=== PATIENT | male | born 1945 | race Caucasian/White ===

== ENCOUNTER 2025-07-24 10:17 | Emergency (ER) | payer SELFPAY ==
--- NOTE | ~2025-07-24 | CT_ITS ---
EXAMINATION: CT soft tissue neck w con COMPARISON: None HISTORY: masses TECHNIQUE: Axial images were obtained with IV contrast. Sagittal, coronal reconstruction images were obtained from the axial views. Omnipaque 370, [address] scan performed using dose optimization techniques including the following automated exposure control; adjustment of mA and/or kV; use of iterative reconstruction technique. Automatic exposure control was used to reduce radiation dose. Permanent radiation dose record is archived to PACS. FINDINGS: Visualized brain parenchyma and optic globes are unremarkable There is no thickening of the prevertebral space or asymmetry of the oropharynx. There is narrowing of the airway at the level of the vocal cords with asymmetry of the vocal cords noted. The trachea is deviated to the right with markedly enlarged thyroid lobes noted bilaterally with multiple nodules the largest in the left lobe 3 x 3 cm incompletely evaluated There is no lymphadenopathy in the anterior superior mediastinum. No thickening of the visualized esophagus The parapharyngeal spaces are intact. There is no asymmetry of the tonsillar tissue Within the right parotid gland there is a large lesion measuring 2.3 x 2.2 cm. There is a second lesion in the anterior parotid gland measuring 1 x 1 cm with additional subcentimeter parotid lesions noted. The left parotid gland appears unremarkable. The submandibular glands unremarkable There is no jugulodigastric, posterior cervical or supraclavicular lymphadenopathy The lung bases appear unremarkable There are no sclerotic or lytic lesions. There is severe right chronic appearing right maxillary sinus with underlying polyp formation suspected IMPRESSION: 1. Right parotid lesions detailed above concerning for neoplasm. Contrast- enhanced MRI is recommended. 2. Severe goiter with multiple thyroid nodules with benign of the airway and mass effect upon the trachea. Ultrasound is recommended Reviewed, dictated and finalized at location P. L CONTROL WORKER IMPRESSION: 1. Right parotid lesions detailed above concerning for neoplasm. Contrast-enhan taran MRI is recommended. 2. Severe goiter with multiple thyroid nodules with benign of the airway and ma ss effect upon the trachea. Ultrasound is recommended
--- NOTE | ~2025-07-24 | CT_ITS ---
CT HEAD NON-CONTRAST Clinical History: fall Comparison: None Technique: Unenhanced axial images skull base to vertex Coronal, sagittal reformats CT images acquired with automatic exposure control for dose reduction DLP: 605 mGy-cm Findings: Chronic white matter microvascular ischemic changes. Sulci, ventricles: Unremarkable. No intracerebral hemorrhage. No evidence acute territorial infarct. No mass effect, midline shift. Bony calvarium intact. Visualized paranasal sinuses: Right maxillary opacification with periosteal thickening. Mastoid air cells: Clear. Right parotid nodule. IMPRESSION: 1. No acute intracranial findings. 2. Right parotid nodule. Recommend ultrasound. Reviewed, dictated and finalized at location R. APPLICATION DEVELOPER
--- NOTE | ~2025-07-24 | CT_ITS ---
EXAMINATION: CT chest abdomen pelvis w con DATE: 07/24/2025 12:20 [employer] BOAT OPERATOR INDICATION: Left rib fracture. Malignancy. TECHNIQUE: Computed tomography (CT) of the neck, chest, abdomen, and pelvis was performed with 100 cc Omnipaque 350 intravenous contrast. The dose-length product was 509.18 mGy-cm. Automated exposure control and iterative reconstruction technique were employed. COMPARISON: None FINDINGS: CHEST CT: There is enlarged thyroid gland with multiple ill-defined hypovascular masses, consistent with multinodular goiter. Consider correlation with ultrasound. There is mass effect with deviation of the trachea to be right. There is atherosclerosis of the aorta and coronary arteries. Heart size normal. Small hiatal hernia. No significant pleural or pericardial effusion. No endobronchial lesions. There is dependent atelectasis no suspicious pulmonary nodules or masses. No focal airspace consolidation. ABDOMEN/PELVIS CT: There is a 2.9 cm cyst of the left hepatic lobe. The spleen, pancreas, adrenal glands and left kidney are unremarkable. There is right renal cyst. Gallbladder is present. Nonobstructive bowel gas pattern. Prostate gland is enlarged. There is thoracic and lumbar spondylosis. IMPRESSION: 1. Enlarged heterogeneous thyroid gland with small hypovascular masses, most likely multinodular goiter. Consider correlation with ultrasound. 2: No acute abnormality of the chest or abdomen. Reviewed, dictated and finalized at location O. IAL WARFARE BOAT OPERATOR IMPRESSION: 1. Enlarged heterogeneous thyroid gland with small hypovascular masses, most li cj multinodular goiter. Consider correlation with ultrasound. 2: No acute abnormality of the chest or abdomen.
[2025-07-24 10:18] VITALS: BP 115/93; PULSE 100; RESP 20; TEMP 36.4; O2SAT 97
--- NOTE | 2025-07-24 10:26 | ED_ITS ---
HPI - Fall General Chief Complaint: Fall Stated Complaint: fall Time Seen by Provider: 07/24/25 10:26 Source: patient and EMS Mode of arrival: EMS History of Present Illness HPI Narrative: 79 years old white male lives alone, going to the bathroom somehow fell landed on the floor, complaining of left lower ribs pain, denies other injuries. History of lower back surgery years ago. Patient currently on [id number] vitamin D daily otherwise not taking any medications, does not remember when the last time been seen by , lives alone, drink 3 beers in the morning and 3 beers at night to relax his lower back. Came to the ED by ambulance. He denies head injury or loss of consciousness Related Data Home Medications ?Medication ?Instructions ?Recorded ?Confirmed ?Last Taken ?Type cholecalciferol (vitamin D3) 50 50 mcg PO DAILY Unknown History mcg (2,000 unit) capsule (D3-1999) Allergies Allergy/AdvReac Type Severity Reaction Status Date / Time No Known Allergies Allergy Verified 07/24/25 10:43 Review of Systems 2 Review of Systems: All systems reviewed & are unremarkable except as noted in HPI and below Exam 2 Narrative: General appearance: Well-developed, well-nourished, poor hygienic condition Skin: Normal color Head: Normocephalic, nontraumatic Eyes: Clear conjunctiva ENT: Oropharynx normal, ears normal, nose normal Neck: Supple, nontender, non tender masses and the upper neck bilaterally just below the level of the ear and at the lower half of the neck bilaterally Chest and respiratory: Airway patent, no respiratory distress, no accessory muscle use, severe tenderness left chest, mid axillary line, no bruises or swelling or rash Heart: Regular rate/rhythm Abdomen: Soft, nontender, no organomegaly, quiet bowel sounds Vascular: Normal peripheral pulses, normal capillary refill. 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 normal as tested, no gross motor deficit Course Vital Signs Vital signs: Vital Signs Temperature 36.4 C 07/24/25 10:18 Pulse Rate 100 07/24/25 10:18 Respiratory Rate 20 07/24/25 10:18 Blood Pressure 115/93 H 07/24/25 10:18 Pulse Oximetry 97 07/24/25 10:18 Oxygen Delivery Room Air 07/24/25 10:18 Temperature 36.7 C 07/24/25 13:21 Pulse Rate 106 H 07/24/25 13:21 Respiratory Rate 18 07/24/25 13:21 Blood Pressure 145/71 H 07/24/25 13:21 Pulse Oximetry 94 07/24/25 13:21 Oxygen Delivery Room Air 07/24/25 13:21 MDM - Fall MDM Narrative Medical decision making narrative: Patient came to the ED with left chest pain after tripping causing balance and fall at home landed on the floor. He denies other injuries. Vital signs showing blood pressure 115/93 otherwise within normal limit Physical examination showing poor hygienic patient, nontender swelling at the base of the neck bilaterally and at the parotid care and bilaterally more on the right. +severe tenderness left chest mid axillary line without bruises or swelling Differential diagnosis neck mass, parotid gland mass, left rib fracture, intrathoracic or intra-abdominal malignancy. Blood workup to the includes CBC, CMP, TSH, showed glucose 209, TSH of 0.25 indicating possible hyperthyroidism. CT head showed without contrast showed no acute abnormality CT neck with IV contrast showed right parotid lesions, MRI is recommended CT chest abdomen and pelvis with IV contrast showed left 3 fractured ribs, goiter, ultrasound recommended for further evaluation Patient declined hospitalization, rehab or care home placement would like to go home because he smokes and drink. All diagnosis right parotid gland lesion, goiter, left 3 broken ribs Discharged on Ultram, naproxen and Tylenol as needed Follow-up with family physician for further evaluation Differential Diagnosis Differential diagnosis: Likely other (As above) Lab Data Attestation: I reviewed the patient's lab results. 07/24/25 10:42 07/24/25 10:42 Labs: Lab Results 07/24/25 07/24/25 Range/Units 10:42 12:15 WBC 9.5 (4.8-10.8) K/mm3 RBC 4.92 (4.70-6.10) M/mm3 Hgb 15.1 (12.4-15.3) g/dL Hct 43.7 (37.0-46.0) % MCV 88.8 (78.0-102.0) fL MCH 30.7 (27.0-31.0) pg MCHC 34.6 (32-36) g/dL RDW 11.5 L (11.6-14.4) % Plt Count 250 (150-420) K/mm3 MPV 8.4 L (8.7-11.0) fl Immature Gran % (Auto) 0.7 H (0.0-0.0) % Neut % (Auto) 79.7 H (50.0-70.0) % Lymph % (Auto) 10.0 L (18.0-42.0) % [place] % (Auto) 8.9 (2.0-11.0) % Eos % (Auto) 0.4 L (1.0-6.0) % Baso % (Auto) 0.3 (0.0-1.0) % Lymph # (Auto) 0.95 L (1.10-4.50) K/mm3 [place] # (Auto) 0.85 (0.10-0.90) K/mm3 Eos # (Auto) 0.04 (0.02-0.50) K/mm3 Baso # (Auto) 0.03 (0.00-0.10) K/mm3 Abs Immat Gran (auto) 0.07 H (0.00-0.00) K/mm3 Absolute Neuts (auto) 7.57 H (1.70-7.20) K/mm3 Absolute Nucleated RBC 0.00 (0.00-0.00) K/mm3 Nucleated RBC % 0.0 (0-0.0) % PT 11.1 (9.50-12.1) Seconds INR 1.0 APTT 28.1 (23.9-30.70) Sec Sodium 133 L (137-145) mmol/L Potassium 4.4 (3.4-5.0) mmol/L Chloride 95 L (98-107) mmol/L Carbon Dioxide 29 (22-30) mmol/L Anion Gap 9 (4-12) mmol/L BUN 7 L (9-20) mg/dL Creatinine 0.74 (0.7-1.3) mg/dL Estim Creat Clear Calc 74 ml/min Estimated GFR > 60 (59 - ) Glucose 209 H (65-110) mg/dL Calculated Osmolality 280 L (285-295) mOsm/kg Calcium 9.3 (8.4-10.2) mg/dL Total Bilirubin 1.0 (0.2-1.3) mg/dL AST 26 (17-59) U/L ALT 23 (6-50) U/L Alkaline Phosphatase 96 (38-126) U/L Total Creatine Kinase 62 (55-170) U/L Total Protein 7.3 (6.3-8.2) g/dL Albumin 4.5 (3.5-5.1) g/dL TSH 0.252 L (0.465-4.680) uIU/mL Urine Color Light yellow (Yellow) Urine Appearance Clear (Clear) Urine pH 6.5 (5.0-8.0) Ur Specific [place] <= 1.005 L (1.010-1.020) Urine Protein Negative (Negative) Urine Glucose (UA) Trace H (Negative) Urine Ketones 1+ H (Negative) Ur Blood (Man) Trace-intact H (Negative) Urine Nitrate Negative (Negative) Urine Bilirubin Negative (Negative) Urine Urobilinogen 1.0 (0.2-1.0) mg/dL Leukocyte Esterase Rfl Negative (Negative) LUIS MANUEL/UL Ethyl Alcohol < 10 (<10) mg/dL Imaging Data Radiologist's impression: Impressions Head CT 07/24/25 11:50 IMPRESSION: 1. No acute intracranial findings. 2. Right parotid nodule. Recommend ultrasound. Chest/Abdomen/Pelvis CT 07/24/25 12:19 IMPRESSION: 1. Enlarged heterogeneous thyroid gland with small hypovascular masses, most likely multinodular goiter. Consider correlation with ultrasound. 2: No acute abnormality of the chest or abdomen. ADDENDUM: 07/24/25 1251 Addendum: There are acute left fifth, seventh and eighth rib fractures, nondisplaced. No pneumothorax. Soft Tissue Neck CT 07/24/25 12:45 IMPRESSION: 1. Right parotid lesions detailed above concerning for neoplasm. Contrast- enhanced MRI is recommended. 2. Severe goiter with multiple thyroid nodules with benign of the airway and mass effect upon the trachea. Ultrasound is recommended Critical Care Time Critical Care Time Critical Care Time: No Discharge Plan Discharge Clinical Impression: Goiter diffuse, Hepatic cyst, Mass of right parotid gland, Multiple rib fractures Patient Disposition: Home Condition: Stable Instructions: Rib Fracture (ED), Thyroid Goiter (ED) Additional Instructions: Return if symptoms are worsening , call your family physician for appointment, take Tylenol as as needed for aches and pain, continue home medications. Workup today showed that you have thyroid goiter need further evaluation by ultrasound Workup today showed that he have parotid lesions, cancer is not ruled out, further evaluation, MRI is recommended Patient Language: Angolan Prescriptions: New tramadol 100 mg tablet 50 mg PO Q4H PRN (Reason: pain) Qty: 30 0RF naproxen [Naprosyn] 500 mg tablet 500 mg PO BID PRN (Reason: pain) Qty: 14 0RF No Action cholecalciferol (vitamin D3) [D3-2000] 50 mcg (2,000 unit) capsule 50 mcg PO DAILY Follow-up/Referrals: Edin Hilario MD [Physician, Internal Medicine]
--- NOTE | 2025-07-24 10:34 | ECG_ITS ---
Test Date: 2025-07-24 10:46:29 Measurements Intervals [place] Rate: 102 P: 5 MA: 172 QRS: 97 QRSD: 149 T: 36 QT: 370 QTc: 483 Interpretive Statements SINUS TACHYCARDIA RIGHT BUNDLE BRANCH BLOCK [120+ ms QRS DURATION, UPRIGHT V1, 40+ ms S IN I/aVL/V4/V5/V6] No previous ECG available for comparison Electronically Signed On 07-24-2025 13:40:34 GRADE RECORDER by Allan Monge M.D.
[2025-07-24 10:45] LABS: Hematocrit 43.7 % (37.0-46.0); Hemoglobin 15.1 g/dL (12.4-15.3); Immature Granulocyte Percent A 0.7 % (0.0-0.0); Lymphocytes Absolute Auto 0.95 K/mm3 (1.10-4.50); Mean Corpuscular HGB Conc 34.6 g/dL (32-36); Mean Corpuscular Hemoglobin 30.7 pg (27.0-31.0); Mean Corpuscular Volume 88.8 fL (78.0-102.0); Nucleated Red Blood Cells Absolute Auto 0.00 K/mm3 (0.00-0.00); Nucleated Red Blood Cells Perc 0.0 % (0-0.0); Platelet Count Result 250 K/mm3 (150-420); Red Blood Count 4.92 M/mm3 (4.70-6.10); White Blood Count 9.5 K/mm3 (4.8-10.8)
[2025-07-24 11:00] LABS: Alanine Aminotransferase 23 U/L (6-50); Albumin Level 4.5 g/dL (3.5-5.1); Alkaline Phosphatase 96 U/L (38-126); Anion Gap 9 mmol/L (4-12); Aspartate Amino Transferase 26 U/L (17-59); Bilirubin,Total 1.0 mg/dL (0.2-1.3); Blood Urea Nitrogen 7 mg/dL (9-20); Calcium 9.3 mg/dL (8.4-10.2); Carbon Dioxide 29 mmol/L (22-30); Chloride 95 mmol/L (98-107); Creatine Kinase 62 U/L (55-170); Estimated CRCL calculation 74 ml/min; Estimated Glomerular Filt Rate > 60; Glucose 209 mg/dL (65-110); Osmolality Calculated 280 mOsm/kg (285-295); Potassium 4.4 mmol/L (3.4-5.0); Sodium 133 mmol/L (137-145); Total Protein 7.3 g/dL (6.3-8.2)
[2025-07-24 11:06] LABS: INR 1.0; Partial Thromboplastin Time 28.1 Sec (23.9-30.70); Prothrombin Time 11.1 Seconds (9.50-12.1)
[2025-07-24 11:30] LABS: Thyroid Stimulating Hormone 0.252 uIU/mL (0.465-4.680)
[2025-07-24 12:20] LABS: Add Urine Microscopic? NO; Appearance Urine Clear (Clear); Glucose Urine UA Trace (Negative); Leukocyte Esterase Ur Negative LEU/UL (Negative); Nitrate Urine Negative (Negative); Specific Grav Ur <= 1.005 (1.010-1.020)
[2025-07-24] MEDS: ONDANSETRON INJ 4 MG/2 ML VIAL IV PUSH (12:49)
[2025-07-24] MEDS: MORPHINE SULFATE (*CRX) 4 MG/ML INJ IV PUSH (12:49)
[2025-07-24 13:21] VITALS: BP 145/71; PULSE 106; RESP 18; TEMP 36.7; O2SAT 94
== END 2025-07-24 13:33 | disposition home or self-care (01) ==
PROVIDERS: Emergency Provider Emergency Medicine; Referring Provider Internal Medicine
DX: S22.42XA Multiple fractures of ribs, left side, initial encounter for closed fracture (principal); E04.9 Nontoxic goiter, unspecified; K76.89 Other specified diseases of liver; D11.0 Benign neoplasm of parotid gland; W18.30XA Fall on same level, unspecified, initial encounter; Y92.002 Bathroom of unspecified non-institutional (private) residence as the place of occurrence of the external cause
CPT/HCPCS: 36415; 70450; 70491; 71260; 74177; 80053; 81003; 82077; 82550; 84443; 85025; 85610; 85730; 93005; 96374; 96375; 99284; J2270; J2405; Q9967